=== PATIENT | male | born 1970 | race African-American/Black ===

== ENCOUNTER 2016-09-28 22:00 | Emergency (ER) | payer MEDICAID ==
[~2016-09-28] VITALS: Ht 167.6 cm; Wt 91.0 kg
[2016-09-29 00:40] VITALS: BP 177/123
[2016-09-29] MEDS ORDERED: LISINOPRIL 40MG TABLET PO ONE (00:45)
== END 2016-09-29 02:20 | disposition home or self-care (01) ==
LOC: ER 22:01
DX: I16.0 Hypertensive urgency (principal); Z91.14 Patient's other noncompliance with medication regimen; F12.90 Cannabis use, unspecified, uncomplicated
CPT/HCPCS: 99283

== ENCOUNTER 2017-04-12 12:02 | Emergency (ER) | payer MEDICAID ==
[~2017-04-12] VITALS: Ht 167.6 cm; Wt 86.0 kg
[2017-04-12] MEDS ORDERED: LISI2.5T47 PO (12:25)
[2017-04-12] MEDS ORDERED: SODIUM CHLORIDE 0.9% 1,000 ML IV ONE (15:26)
[2017-04-12 15:54] LABS: BASOPHILS % 0.6 % (0.0-2.0); EOSINOPHILS % 0.9 % (0.0-5.0); HEMATOCRIT. 50.2 % (42.0-52.0); HEMOGLOBIN. 16.4 g/dL (14.0-18.0); LYMPHOCYTES % 30.8 % (20.0-50.0); MEAN CORPUSCULAR HEMOGLOBIN 27.6 pg (28.0-32.0); MEAN CORPUSCULAR VOLUME 84.3 fL (80.0-94.0); MEAN PLATELET VOLUME 9.7 fl (7.4-10.4); MONOCYTES % 9.5 % (2.0-8.0); NEUTROPHILS % 58.2 % (40.0-76.0); PLATELET 221 x1000/uL (130-400); RED BLOOD CELL COUNT 5.95 mill/uL (4.7-6.1); RED CELL DISTRIBUTION WIDTH 14.2 % (11.6-14.6)
[2017-04-12 15:56] LABS: CHLORIDE 104 mEq/L (98-107); PROTHROMBIN TIME 10.5 sec (9.4-11.6)
[2017-04-12 16:00] LABS: CARBON DIOXIDE 29 mEq/L (21-32)
[2017-04-12] MEDS ORDERED: KETOROLAC 30MG/ML VIAL IV ONE (16:00)
[2017-04-12] MEDS ORDERED: LISINOPRIL 20MG TABLET PO ONE (16:00)
[2017-04-12 19:04] LABS: CLARITY URINE CLEAR (CLEAR); COLOR URINE YELLOW (YELLOW); GLUCOSE URINE NEGATIVE (NEGATIVE); KETONES URINE NEGATIVE (NEGATIVE); LEUKOCYTE ESTERASE URINE NEGATIVE (NEGATIVE); NITRITE URINE NEGATIVE (NEGATIVE); OCCULT BLOOD URINE NEGATIVE (NEGATIVE); PROTEIN URINE NEGATIVE (NEGATIVE); SPECIFIC GRAVITY URINE 1.012 (1.005-1.030); UROBILINOGEN URINE 0.2 E.U./dL (0.2-1.0)
[2017-04-12 20:10] VITALS: BP 156/90
== END 2017-04-12 20:30 | disposition home or self-care (01) ==
LOC: ER 12:02
DX: I10 Essential (primary) hypertension (principal); Z91.14 Patient's other noncompliance with medication regimen; F12.90 Cannabis use, unspecified, uncomplicated; Z88.0 Allergy status to penicillin
CPT/HCPCS: 36415; 80053; 81003; 85025; 85610; 96361; 96374; 99285; J1885; J7030; Z7610

== ENCOUNTER 2019-08-25 16:21 | Inpatient (IN) | payer MEDICAID ==
[~2019-08-25] VITALS: Ht 172.7 cm; Wt 93.9 kg
[~2019-08-25 16:21] MED LIST: LISI2.5T47 PO
[2019-08-25] MEDS ORDERED: LISINOPRIL 40MG TABLET PO ONE (17:15)
[2019-08-25] MEDS ORDERED: CLONIDINE 0.2MG TABLET PO ONE (18:00)
[2019-08-25 21:00] LABS: HEMATOCRIT 47.8 % (42.0-52.0); HEMOGLOBIN 15.7 g/dL (14.0-18.0); MEAN CORPUSCULAR HEMOGLOBIN 28.5 pg (28.0-32.0); MEAN CORPUSCULAR VOLUME 86.9 fL (80.0-94.0); PLATELET 190 x1000/uL (130-400); RED CELL DISTRIBUTION WIDTH 14.4 % (11.6-14.6)
[2019-08-25 23:25] VITALS: BP 183/118
[2019-08-26] MEDS ORDERED: HYDRALAZINE 20MG/ML VIAL IV PRN ×2 (00:45→05:00)
[2019-08-26] MEDS ORDERED: LISI40TA4 PO (00:46)
[2019-08-26 04:00] VITALS: BP 178/105
[2019-08-26 07:31] LABS: BASOPHILS % 0.5 % (0.0-2.0); EOSINOPHILS % 1.6 % (0.0-5.0); HEMATOCRIT. 46.4 % (42.0-52.0); HEMOGLOBIN. 15.6 g/dL (14.0-18.0); LYMPHOCYTES % 32.3 % (20.0-50.0); MEAN CORPUSCULAR HEMOGLOBIN 28.9 pg (28.0-32.0); MEAN CORPUSCULAR VOLUME 85.6 fL (80.0-94.0); MEAN PLATELET VOLUME 10.8 fl (7.4-10.4); MONOCYTES % 9.3 % (2.0-8.0); NEUTROPHILS % 56.3 % (40.0-76.0); PLATELET 204 x1000/uL (130-400); RED BLOOD CELL COUNT 5.41 mill/uL (4.7-6.1); RED CELL DISTRIBUTION WIDTH 13.9 % (11.6-14.6)
[2019-08-26 07:33] LABS: CHLORIDE 109 mEq/L (98-107)
[2019-08-26 08:00] VITALS: BP 146/88
[2019-08-26] MEDS: ENOXAPARIN 30MG/0.3ML SYR SUBCUT SCH ×3 (08:40→21:37)
[2019-08-26] MEDS ORDERED: ENOXAPARIN 40MG/0.4ML SYR SUBCUT SCH (09:00)
[2019-08-26 12:00] VITALS: BP 135/91
[2019-08-26] MEDS: HYDRALAZINE HCL 100MG TABLET PO SCH ×2 (15:02→21:38)
[2019-08-26 16:00] VITALS: BP 146/95
[2019-08-26 17:31] LABS: CLARITY URINE CLEAR (CLEAR); COLOR URINE YELLOW (YELLOW); KETONES URINE NEGATIVE (NEGATIVE); LEUKOCYTE ESTERASE URINE NEGATIVE (NEGATIVE); NITRITE URINE NEGATIVE (NEGATIVE); OCCULT BLOOD URINE NEGATIVE (NEGATIVE); PROTEIN URINE NEGATIVE (NEGATIVE); SPECIFIC GRAVITY URINE 1.018 (1.005-1.030)
[2019-08-26 17:41] LABS: *AMPHETAMINES SCREEN URINE NEGATIVE (NEGATIVE); *BARBITURATES SCREEN URINE NEGATIVE (NEGATIVE); *BENZODIAZEPINES SCREEN URINE NEGATIVE (NEGATIVE); *COCAINE SCREEN URINE NEGATIVE (NEGATIVE)
[2019-08-26 17:42] LABS: CANNABINOID URINE SCREEN PRESUMTIVE POSITIVE (NEGATIVE); METHADONE URINE SCREEN NEGATIVE (NEGATIVE); OPIATES URINE SCREEN NEGATIVE (NEGATIVE)
[2019-08-26 17:44] LABS: PHENCYCLIDINE URINE SCREEN NEGATIVE (NEGATIVE)
[2019-08-26] MEDS: ACETAMINOPHEN 325MG TABLET PO PRN (18:46)
[2019-08-26 20:00] VITALS: BP 158/86
[2019-08-26] MEDS: AMLODIPINE 5MG TABLET PO SCH (21:37)
[2019-08-27] VITALS: BP 159/63
[2019-08-27 04:00] VITALS: BP 159/88
[2019-08-27] MEDS: HYDRALAZINE HCL 100MG TABLET PO SCH ×2 (07:06→14:32)
[2019-08-27 07:15] LABS: BASOPHILS % 0.2 % (0.0-2.0); EOSINOPHILS % 0.1 % (0.0-5.0); HEMATOCRIT. 48.5 % (42.0-52.0); HEMOGLOBIN. 15.7 g/dL (14.0-18.0); LYMPHOCYTES % 20.5 % (20.0-50.0); MEAN CORPUSCULAR HEMOGLOBIN 27.8 pg (28.0-32.0); MEAN CORPUSCULAR VOLUME 86.1 fL (80.0-94.0); MEAN PLATELET VOLUME 10.5 fl (7.4-10.4); MONOCYTES % 6.2 % (2.0-8.0); PLATELET 228 x1000/uL (130-400); RED BLOOD CELL COUNT 5.64 mill/uL (4.7-6.1); RED CELL DISTRIBUTION WIDTH 14.5 % (11.6-14.6)
[2019-08-27 08:00] VITALS: BP 147/91
[2019-08-27] MEDS: ENOXAPARIN 30MG/0.3ML SYR SUBCUT SCH ×2 (09:19→20:29)
[2019-08-27] MEDS: AMLODIPINE 5MG TABLET PO SCH ×2 (09:26→20:29)
[2019-08-27] MEDS: ACETAMINOPHEN 325MG TABLET PO PRN (09:26)
[2019-08-27 12:00] VITALS: BP 153/90
[2019-08-27] MEDS: METOPROLOL TARTRATE 50MG TABLET PO SCH ×2 (12:45→20:30)
[2019-08-27] MEDS: SODIUM CHLORIDE 0.9% 1,000 ML IV SCH (12:51)
[2019-08-27 16:00] VITALS: BP 146/86
[2019-08-27 20:00] VITALS: BP 153/80
[2019-08-28] VITALS: BP 140/80
[2019-08-28] MEDS: HYDRALAZINE HCL 100MG TABLET PO SCH ×3 (00:30→14:00)
[2019-08-28 04:00] VITALS: BP 135/70
[2019-08-28] MEDS: SODIUM CHLORIDE 0.9% 1,000 ML IV SCH (04:43)
[2019-08-28 07:01] LABS: BASOPHILS % 0.4 % (0.0-2.0); EOSINOPHILS % 0.3 % (0.0-5.0); HEMATOCRIT. 47.7 % (42.0-52.0); HEMOGLOBIN. 15.6 g/dL (14.0-18.0); LYMPHOCYTES % 25.6 % (20.0-50.0); MEAN CORPUSCULAR HEMOGLOBIN 28.3 pg (28.0-32.0); MEAN CORPUSCULAR VOLUME 86.7 fL (80.0-94.0); MEAN PLATELET VOLUME 10.5 fl (7.4-10.4); MONOCYTES % 8.4 % (2.0-8.0); NEUTROPHILS % 65.3 % (40.0-76.0); PLATELET 213 x1000/uL (130-400); RED CELL DISTRIBUTION WIDTH 14.3 % (11.6-14.6)
[2019-08-28 08:00] VITALS: BP 143/83
[2019-08-28] MEDS: ENOXAPARIN 30MG/0.3ML SYR SUBCUT SCH ×2 (09:00→09:17)
[2019-08-28] MEDS: AMLODIPINE 5MG TABLET PO SCH (09:18)
[2019-08-28] MEDS: METOPROLOL TARTRATE 50MG TABLET PO SCH (09:18)
[2019-08-28 12:00] VITALS: BP 123/74
[2019-08-28] MEDS ORDERED: METO25TA6 MT (12:26)
[2019-08-28 12:46] VITALS: BP 123/74
== END 2019-08-28 15:05 | disposition home or self-care (01) | DRG 199 ==
LOC: ER 16:21 → 5WST 20:14 → ENRESERV 22:13
PROVIDERS: ADMIT Internal Medicine; ATTEND Internal Medicine
DX: I16.0 Hypertensive urgency (principal); N17.9 Acute kidney failure, unspecified; N18.3 Chronic kidney disease, stage 3 (moderate); I12.9 Hypertensive chronic kidney disease with stage 1 through stage 4 chronic kidney disease, or unspecified chronic kidney disease; Z82.49 Family history of ischemic heart disease and other diseases of the circulatory system; Z85.528 Personal history of other malignant neoplasm of kidney; Z90.5 Acquired absence of kidney; Z91.19 Patient's noncompliance with other medical treatment and regimen; Z88.0 Allergy status to penicillin; Z79.899 Other long term (current) drug therapy; Z72.89 Other problems related to lifestyle; Z92.21 Personal history of antineoplastic chemotherapy
CPT/HCPCS: 36415; 76775; 80048; 80053; 80061; 80305; 81003; 84443; 84484; 85025; 85027; 93005; 93306; 99285; J0360; J1650; J7030